=== PATIENT | male | born 1965 | race Caucasian/White ===

== ENCOUNTER → 2016-08-23 | Outpatient (CLI) | payer BC | LOC: CARDREHAB 08-18 11:12 | DX: R07.9 Chest pain, unspecified (principal) ==

== ENCOUNTER 2017-03-20 12:09 | Emergency (ER) | payer BC ==
[~2017-03-20] VITALS: Ht 188 cm; Wt 99.1 kg
[2017-03-20 12:15] VITALS: BP 141/91
[2017-03-20] MEDS ORDERED: LEXAPRO 10MG10 MG PO (13:05)
[2017-03-20] MEDS ORDERED: NEURONTIN300 M1 PO (13:05)
[2017-03-20] MEDS ORDERED: AMARYL4 M1 PO (13:05)
[2017-03-20] MEDS ORDERED: GLUCOSAMINE PO (13:06)
[2017-03-20] MEDS ORDERED: IBU800 M1 PO (13:06)
[2017-03-20] MEDS ORDERED: NAPROXEN SODIU220 M1 PO (13:07)
[2017-03-20] MEDS ORDERED: GLUCOPHAGE1000 MG PO (13:07)
[2017-03-20] MEDS ORDERED: OMEGA 3-6-9 11200 MG PO (13:08)
[2017-03-20] MEDS ORDERED: CIALIS5 MG PO (13:08)
[2017-03-20] MEDS ORDERED: JANUVIA50 MG PO (13:08)
[2017-03-20] MEDS ORDERED: SIMVASTATIN20 M1 PO (13:08)
== END 2017-03-20 13:23 | disposition home or self-care (01) ==
LOC: ED 12:09
DX: F32.9 Major depressive disorder, single episode, unspecified (principal); F41.9 Anxiety disorder, unspecified; E11.9 Type 2 diabetes mellitus without complications; Z79.84 Long term (current) use of oral hypoglycemic drugs

== ENCOUNTER → 2018-06-09 | Outpatient (CLI) | payer BC ==
[~2018-06-09] VITALS: Ht 188 cm; Wt 108.2 kg
[~2018-06-09] MED LIST: AMARYL4 M1 PO; CIALIS5 MG PO; GLUCOPHAGE1000 MG PO; GLUCOSAMINE PO; IBU800 M1 PO; JANUVIA50 MG PO; LEXAPRO 10MG10 MG PO; NAPROXEN SODIU220 M1 PO; NEURONTIN300 M1 PO; OMEGA 3-6-9 11200 MG PO; SIMVASTATIN20 M1 PO
[2018-06-09 14:40] VITALS: BP 149/99
== END ==
LOC: AMSURD 16:22
DX: M25.519 Pain in unspecified shoulder (principal); Z98.890 Other specified postprocedural states
CPT/HCPCS: J1885

== ENCOUNTER 2018-09-20 08:30 | Outpatient (RCR) | payer OTHER ==
[2018-06-09 14:40] VITALS: BP 149/99
== END 2018-09-24 | disposition home or self-care (01) ==
LOC: PT
DX: Z47.89 Encounter for other orthopedic aftercare (principal); M25.511 Pain in right shoulder

== ENCOUNTER 2018-12-16 00:42 | Emergency (ER) | payer BC ==
[~2018-12-16] VITALS: Ht 190.5 cm; Wt 111.2 kg
[2018-12-16 01:42] VITALS: BP 142/78
== END 2018-12-16 01:42 | disposition home or self-care (01) ==
LOC: ED 00:42
DX: S01.01XA Laceration without foreign body of scalp, initial encounter (principal); S01.112A Laceration without foreign body of left eyelid and periocular area, initial encounter; E11.9 Type 2 diabetes mellitus without complications; F32.9 Major depressive disorder, single episode, unspecified; F10.129 Alcohol abuse with intoxication, unspecified; Z23 Encounter for immunization; W18.11XA Fall from or off toilet without subsequent striking against object, initial encounter; Y92.838 Other recreation area as the place of occurrence of the external cause; Z79.84 Long term (current) use of oral hypoglycemic drugs
CPT/HCPCS: 90715

== ENCOUNTER 2018-12-20 14:30 | Outpatient (RCR) | payer OTHER ==
[2018-06-09 14:40] VITALS: BP 149/99
== END 2018-12-24 | disposition still patient (30) ==
LOC: PT
DX: M25.511 Pain in right shoulder (principal); Z98.890 Other specified postprocedural states

== ENCOUNTER 2018-12-23 12:35 | Emergency (ER) | payer BC ==
[2018-12-23 12:53] VITALS: BP 136/89
== END 2018-12-23 12:55 | disposition home or self-care (01) ==
LOC: ED 12:35
DX: Z48.02 Encounter for removal of sutures (principal)

== ENCOUNTER 2019-02-21 14:30 | Outpatient (RCR) | payer OTHER | END 2019-02-21 15:00 | disposition home or self-care (01) | LOC: PT 14:30 | DX: M25.511 Pain in right shoulder (principal); Z98.890 Other specified postprocedural states ==

== ENCOUNTER 2019-04-05 06:09 | Emergency (ER) | payer BC ==
[2019-04-05 06:44] LABS: EOS # 0.2 (0.04-0.40); EOS % 1.8 % (0.0-4.0); HEMATOCRIT 43.7 % (42.0-52.0); HEMOGLOBIN 15.2 g/dL (13.5-18.0); LYMPH# 1.2 (1.50-4.00); MEAN CELL VOLUME 75 fl (78-100); MEAN CORPUSCULAR HEMOGLOBIN 26 pg (27-31); MEAN CORPUSCULAR HGB CONC 35 g/dL (33-37); MEAN PLATELET VOLUME 9.7 fl (7.4-10.4); MONO # 1.1 (0.20-0.80); NEU # 7.4 (1.40-6.50); PLATELET COUNT 192 K/mm3 (130-400); RED BLOOD COUNT 5.83 M/mm3 (4.20-5.60); RED CELL DISTRIBUTION WIDTH 14.3 % (11.5-14.5)
[2019-04-05] MEDS ORDERED: PRINIVIL5 M1 PO (06:44)
[2019-04-05 07:00] LABS: ALBUMIN 4.4 g/dL (3.5-5.0)
[2019-04-05 07:01] LABS: CALCIUM 9.5 mg/dL (8.3-10.5)
[2019-04-05 07:05] LABS: TOTAL BILIRUBIN 0.8 mg/dL (0.2-1.2)
[2019-04-05 07:18] VITALS: BP 138/91
== END 2019-04-05 07:18 | disposition short-term general hospital (02) ==
LOC: ED 06:09
PROVIDERS: Nurse Practitioner Primary Care
DX: I21.3 ST elevation (STEMI) myocardial infarction of unspecified site (principal); E11.9 Type 2 diabetes mellitus without complications; I10 Essential (primary) hypertension; Z79.84 Long term (current) use of oral hypoglycemic drugs; Z88.0 Allergy status to penicillin; Z98.890 Other specified postprocedural states
CPT/HCPCS: J2270; J3101

== ENCOUNTER 2019-06-26 15:30 | Outpatient (RCR) | payer BC ==
[~2019-06-26 15:30] MED LIST changes: +PRINIVIL5 M1 PO
== END 2019-07-14 | disposition home or self-care (01) ==
LOC: CARDREHAB
DX: I21.9 Acute myocardial infarction, unspecified (principal); Z95.5 Presence of coronary angioplasty implant and graft

== ENCOUNTER → 2021-08-10 | Outpatient (CLI) | payer BC ==
[2021-08-10 16:21] LABS: BASO # 0.03 K/mm3 (0.02-0.10); EOS # 0.24 K/mm3 (0.04-0.40); HEMATOCRIT 42.8 % (42.0-52.0); HEMOGLOBIN 14.9 g/dL (13.5-18.0); LYMPH# 1.71 K/mm3 (1.50-4.00); MEAN CELL VOLUME 79 fl (78-100); MEAN CORPUSCULAR HEMOGLOBIN 27 pg (27-31); MEAN CORPUSCULAR HGB CONC 35 g/dL (33-37); MONO # 0.72 K/mm3 (0.20-0.80); NEU # 5.28 K/mm3 (1.40-6.50); PLATELET COUNT 174 K/mm3 (130-400); RED BLOOD COUNT 5.45 M/mm3 (4.20-5.60)
[2021-08-10 16:29] LABS: ALBUMIN 4.7 g/dL (3.5-5.0)
[2021-08-10 16:31] LABS: TOTAL PROTEIN 7.8 g/dL (6.4-8.3)
[2021-08-10 16:33] LABS: TOTAL BILIRUBIN 0.8 mg/dL (0.2-1.2)
[2021-08-10 16:51] LABS: PH-URINE 5.5 (5.0 - 8.0); URINE APPEARANCE CLEAR; URINE BILIRUBIN NEGATIVE (NEGATIVE); URINE BLOOD NEGATIVE (NEGATIVE); URINE COLOR YELLOW; URINE KETONE NEGATIVE (NEGATIVE); URINE LEUKOCYTE ESTERASE NEGATIVE (NEGATIVE); URINE NITRATE NEGATIVE (NEGATIVE); URINE PROTEIN(semi-quant) NEGATIVE (NEGATIVE); URINE UROBILINOGEN NORMAL (NORMAL); URINE WBC 0-1 /hpf (0-3)
== END ==
LOC: LAB 16:03
PROVIDERS: Internal Medicine
DX: D12.6 Benign neoplasm of colon, unspecified (principal); I25.10 Atherosclerotic heart disease of native coronary artery without angina pectoris; E11.9 Type 2 diabetes mellitus without complications; K90.9 Intestinal malabsorption, unspecified; G47.33 Obstructive sleep apnea (adult) (pediatric)

== ENCOUNTER → 2021-12-22 | Outpatient (CLI) | payer BC | LOC: LAB 15:00 | DX: L03.032 Cellulitis of left toe (principal) ==

== ENCOUNTER 2023-03-16 08:00 | Outpatient (RCR) | payer BC ==
[~2023-03-16 08:00] MED LIST changes: +ATORVASTATIN CA20 MG PO
== END 2023-04-06 | disposition home or self-care (01) ==
LOC: CARDREHAB
DX: Z48.812 Encounter for surgical aftercare following surgery on the circulatory system (principal); Z95.5 Presence of coronary angioplasty implant and graft

== ENCOUNTER 2023-04-10 08:00 | Outpatient (RCR) | payer BC | END 2023-05-07 | disposition home or self-care (01) | LOC: CARDREHAB | DX: Z48.812 Encounter for surgical aftercare following surgery on the circulatory system (principal); Z95.5 Presence of coronary angioplasty implant and graft ==

== ENCOUNTER 2023-11-17 06:40 | Emergency (ER) | payer BC ==
[~2023-11-17] VITALS: Ht 188 cm; Wt 108.2 kg
[2023-11-17 07:03] LABS: BASO # 0.02 K/mm3 (0.02-0.10); EOS # 0.28 K/mm3 (0.04-0.40); EOS % 3.7 % (0.0-4.0); HEMATOCRIT 40.3 % (42.0-52.0); HEMOGLOBIN 14.1 g/dL (13.5-18.0); LYMPH# 1.12 K/mm3 (1.50-4.00); MEAN CELL VOLUME 79 fl (78-100); MEAN CORPUSCULAR HEMOGLOBIN 28 pg (27-31); MEAN CORPUSCULAR HGB CONC 35 g/dL (33-37); MEAN PLATELET VOLUME 9.2 fl (7.4-10.4); MONO # 0.66 K/mm3 (0.20-0.80); PLATELET COUNT 132 K/mm3 (130-400); RED BLOOD COUNT 5.12 M/mm3 (4.20-5.60); RED CELL DISTRIBUTION WIDTH 12.8 % (11.5-14.5); WHITE BLOOD COUNT 7.6 K/mm3 (4.8-10.8)
[2023-11-17 07:19] LABS: ALBUMIN 4.3 g/dL (3.5-5.0)
[2023-11-17 07:20] LABS: SODIUM 135 mmol/L (136-145)
[2023-11-17 07:21] LABS: CALCIUM 9.5 mg/dL (8.3-10.5)
[2023-11-17 07:22] LABS: GLUCOSE 250 mg/dL (75-110); TOTAL PROTEIN 6.8 g/dL (6.4-8.3)
[2023-11-17 07:23] LABS: CARBON DIOXIDE 18 mmol/L (22-29)
[2023-11-17 07:24] LABS: TOTAL BILIRUBIN 1.2 mg/dL (0.2-1.2)
[2023-11-17 07:27] LABS: AST-SGOT 26 U/L (5-34)
[2023-11-17 07:29] LABS: ALT/SGPT 35 U/L (0-55); LIPASE 62 U/L (8-78)
[2023-11-17 07:35] LABS: TROPONIN-I < 0.030 ng/mL (0.00-0.033)
[2023-11-17 08:22] VITALS: BP 114/73
== END 2023-11-17 08:24 | disposition home or self-care (01) ==
LOC: ED 06:40
PROVIDERS: Family Medicine
DX: R07.89 Other chest pain (principal); E66.01 Morbid (severe) obesity due to excess calories; E11.9 Type 2 diabetes mellitus without complications; E87.1 Hypo-osmolality and hyponatremia; Z68.30 Body mass index [BMI] 30.0-30.9, adult

== ENCOUNTER → 2023-11-24 | Outpatient (CLI) | payer BC ==
[2023-11-24 15:32] LABS: HEMATOCRIT 39.8 % (42.0-52.0); HEMOGLOBIN 13.8 g/dL (13.5-18.0); MEAN PLATELET VOLUME 9.2 fl (7.4-10.4); RED BLOOD COUNT 5.05 M/mm3 (4.20-5.60); RED CELL DISTRIBUTION WIDTH 12.9 % (11.5-14.5); WHITE BLOOD COUNT 6.9 K/mm3 (4.8-10.8)
[2023-11-24 15:41] LABS: ALBUMIN 4.6 g/dL (3.5-5.0)
[2023-11-24 15:50] LABS: MAGNESIUM 1.89 mg/dL (1.60-2.60)
== END ==
LOC: LAB 15:17
PROVIDERS: Internal Medicine
DX: I25.10 Atherosclerotic heart disease of native coronary artery without angina pectoris (principal); E11.9 Type 2 diabetes mellitus without complications; K90.9 Intestinal malabsorption, unspecified

== ENCOUNTER → 2024-02-19 | Outpatient (CLI) | payer BC ==
[2024-02-19 09:11] LABS: BASO # 0.01 K/mm3 (0.02-0.10); EOS # 0.23 K/mm3 (0.04-0.40); EOS % 3.2 % (0.0-4.0); HEMATOCRIT 43.8 % (42.0-52.0); HEMOGLOBIN 14.9 g/dL (13.5-18.0); LYMPH# 1.07 K/mm3 (1.50-4.00); MEAN CELL VOLUME 81 fl (78-100); MEAN CORPUSCULAR HEMOGLOBIN 28 pg (27-31); MEAN CORPUSCULAR HGB CONC 34 g/dL (33-37); MEAN PLATELET VOLUME 8.9 fl (7.4-10.4); MONO # 0.65 K/mm3 (0.20-0.80); NEU # 5.23 K/mm3 (1.40-6.50); PLATELET COUNT 165 K/mm3 (130-400); RED BLOOD COUNT 5.42 M/mm3 (4.20-5.60); RED CELL DISTRIBUTION WIDTH 13.2 % (11.5-14.5); WHITE BLOOD COUNT 7.2 K/mm3 (4.8-10.8)
[2024-02-19 09:30] LABS: ALBUMIN 4.6 g/dL (3.5-5.0)
[2024-02-19 09:31] LABS: CALCIUM 9.9 mg/dL (8.3-10.5)
[2024-02-19 09:32] LABS: TOTAL PROTEIN 7.1 g/dL (6.4-8.3)
[2024-02-19 09:34] LABS: TOTAL BILIRUBIN 1.6 mg/dL (0.2-1.2)
[2024-02-19 09:39] LABS: MAGNESIUM 1.93 mg/dL (1.60-2.60)
== END ==
LOC: LAB 08:59
PROVIDERS: Internal Medicine
DX: I25.10 Atherosclerotic heart disease of native coronary artery without angina pectoris (principal); E78.5 Hyperlipidemia, unspecified; E11.9 Type 2 diabetes mellitus without complications